=== PATIENT | female | born 1975 | race Caucasian/White ===

== ENCOUNTER 2019-10-09 16:42 | Inpatient (IN) ==
[2019-10-09 17:31] LABS: Basophils # 0.1 K/mcL (0.0-0.2); Basophils % 1.2 %; Eosinophils # 0.8 K/mcL (0.0-0.6); Eosinophils % 9.3 %; Hematocrit 44.3 % (35.3-44.9); Hemoglobin 14.2 g/dL (11.5-15.4); Immature Granulocytes % 0.7 % (0-4); Lymphocytes # 2.8 K/mcL (0.6-4.6); Lymphocytes % 33.8 %; Mean Corpuscular HGB Conc 32.1 g/dL (31.6-35.5); Mean Corpuscular Hemoglobin 31.1 pg (28.0-33.3); Mean Corpuscular Volume 97.1 fL (83.0-100.0); Mean Platelet Volume 9.7 fL (9.4-12.4); Monocytes # 0.8 K/mcL (0.0-1.3); Monocytes % 9.3 %; Neutrophils # 3.8 K/mcL (1.6-8.9); Platelet Count 324 K/mcL (140-400); Red Blood Count 4.56 M/mcL (3.82-4.97); Red Cell Distribution Width 12.3 % (11.5-14.5); Segmented Neutrophils % 45.7 %; White Blood Count 8.3 K/mcL (4.3-11.1)
[2019-10-09 17:36] LABS: VBG HCO3 24 mEq/L (21-27); VBG PCO2 42 mmHg (41-51); VBG PH 7.35 pH Units (7.32-7.42); VBG PO2 41 mmHg (25-50)
[2019-10-09 17:44] LABS: Prothrombin Time 11.4 Seconds (9.4-12.1)
[2019-10-09 17:47] LABS: Activated Partial Thrombo Time 39.7 Seconds (26.0-36.0)
[2019-10-09 18:15] LABS: Alanine Aminotransferase 67 Units/L (7-52); Albumin/Globulin Ratio 1.2 (1.1-2.2); Alkaline Phosphatase 593 Units/L (34-104); Aspartate Amino Transferase 68 Units/L (13-39); BUN/Creatinine Ratio 16 (6-26); Bilirubin,Direct 0.2 mg/dL (0.0-0.2); Bilirubin,Indirect 0.3 mg/dL (0.0-1.0); Bilirubin,Total 0.5 mg/dL (0.3-1.0); Blood Urea Nitrogen 27 mg/dL (6-20); Calcium 10.9 mg/dL (8.6-10.3); Carbon Dioxide 24 mEq/L (23-29); Chloride 105 mEq/L (98-107); Creatine Kinase 669 Units/L (30-223); Ethanol < 10 mg/dL (Less than 10); Globulin 3.4 g/dL (2.4-3.5); Glucose 113 mg/dL (70-105); Osmolality,Calculated 296 (280-300); Potassium 3.6 mEq/L (3.5-5.1); Sodium 140 mEq/L (136-145); Thyroid Stimulating Hormone 1.886 mcIU/mL (0.340-5.600); Total Protein 7.4 g/dL (6.4-8.9); Troponin I 0.03 ng/mL (< 0.04); eGFR For African Americans 39 (> 60); eGFR For Non-African Americans 32 (> 60)
[2019-10-09 19:35] LABS: Bilirubin,Urine Negative (Negative); Blood,Urine Negative (Negative); Clarity,Urine Clear (Clear); Color,Urine Yellow (Yellow); Glucose,Urine (UA) Normal (Normal); Ketones,Urine Negative (Negative); Leukocyte Esterase,Urine Negative (Negative); Nitrite,Urine Negative (Negative); Protein,Urine Trace mg/dL (Neg-Trace); Specific Gravity,Urine 1.019 (1.010-1.025); Urobilinogen,Urine Normal (Normal)
[2019-10-09] MEDS ORDERED: 0.9 % Sodium Chloride 1,000 ML IVC ONE (19:48)
[2019-10-09 19:51] LABS: Amphetamine Screen,Urine Positive ng/mL (Cutoff=1000); Barbiturate Screen,Urine Positive ng/mL (Cutoff=200); Benzodiazepines Screen,Urine Negative ng/mL (Cutoff=200); Cannabinoid Screen,Urine Negative ng/mL (Cutoff = 50); Cocaine Screen,Urine Negative ng/mL (Cutoff= 300); Opiate Screen,Urine Negative ng/mL (Cutoff=300); Phencyclidine Screen,Urine Negative ng/mL (Cutoff=25)
[2019-10-09] MEDS ORDERED: Naloxone 0.4 MG/ML INJ IVP PRN (22:30)
[2019-10-10] MEDS ORDERED: Acetaminophen/Butalbital/CaffeineTABLET PO PRN (00:08)
[2019-10-10] MEDS ORDERED: (Rizatriptan Benzoate [Maxalt] 10 MG) PO PRN (00:08)
[2019-10-10] MEDS ORDERED: 0.9 % Sodium Chloride 1,000 ML IVC SCH (00:15)
[2019-10-10 02:43] LABS: BUN/Creatinine Ratio 21 (6-26); Blood Urea Nitrogen 24 mg/dL (6-20); Calcium 9.6 mg/dL (8.6-10.3); Carbon Dioxide 20 mEq/L (23-29); Chloride 112 mEq/L (98-107); Glucose 92 mg/dL (70-105); Osmolality,Calculated 298 (280-300); Potassium 4.9 mEq/L (3.5-5.1); Sodium 142 mEq/L (136-145); eGFR For African Americans > 60 (> 60); eGFR For Non-African Americans 53 (> 60)
[2019-10-10 05:48] LABS: Basophils # 0.1 K/mcL (0.0-0.2); Basophils % 1.1 %; Eosinophils # 0.8 K/mcL (0.0-0.6); Eosinophils % 9.8 %; Hematocrit 38.1 % (35.3-44.9); Hemoglobin 12.6 g/dL (11.5-15.4); Immature Granulocytes % 0.6 % (0-4); Mean Corpuscular HGB Conc 33.1 g/dL (31.6-35.5); Mean Corpuscular Hemoglobin 31.8 pg (28.0-33.3); Mean Corpuscular Volume 96.2 fL (83.0-100.0); Monocytes # 0.8 K/mcL (0.0-1.3); Monocytes % 9.7 %; Neutrophils # 3.6 K/mcL (1.6-8.9); Platelet Count 264 K/mcL (140-400); Red Blood Count 3.96 M/mcL (3.82-4.97); Red Cell Distribution Width 12.3 % (11.5-14.5); Segmented Neutrophils % 42.8 %; White Blood Count 8.4 K/mcL (4.3-11.1)
[2019-10-10] MEDS: *HR* Heparin 5,000 UNIT/ML VIAL SQ SCH ×3 (05:54→22:10)
[2019-10-10] MEDS: Ringers Solution, Lactated 1,000 ML IVC SCH (11:58)
[2019-10-10 12:19] LABS: Red Blood Cell,CSF < 2000 RBC/mcL
[2019-10-10 12:22] LABS: Appearance,CSF Clear (Clear)
[2019-10-10 12:36] LABS: Glucose,CSF 49 mg/dL (40-70); Total Protein,CSF 107 mg/dL (15-45)
[2019-10-10 13:13] LABS: Basophils,CSF 0 %; Eosinophils,CSF 0 %; Other Cells,CSF 0 %
[2019-10-10] MEDS: PARoxetine 20 MG TABLET PO SCH (13:55)
[2019-10-10 14:03] LABS: Albumin 3.3 g/dL (3.5-5.7); Albumin/Globulin Ratio 1.2 (1.1-2.2); Bilirubin,Direct 0.1 mg/dL (0.0-0.2); Bilirubin,Indirect 0.3 mg/dL (0.0-1.0); Bilirubin,Total 0.4 mg/dL (0.3-1.0); Globulin 2.7 g/dL (2.4-3.5)
[2019-10-10] MEDS ORDERED: Acetaminophen 325 MG TABLET PO PRN (17:26)
[2019-10-10] MEDS: Nicotine 7 MG PATCH.TD24 TD SCH (17:43)
[2019-10-10] MEDS: Topiramate 25 MG TABLET PO SCH (22:10)
[2019-10-11] MEDS: Ringers Solution, Lactated 1,000 ML IVC SCH ×2 (00:56→13:24)
[2019-10-11] MEDS: Fluconazole 100 MG TABLET PO SCH ×2 (00:57→07:34)
[2019-10-11 02:58] LABS: Basophils # 0.1 K/mcL (0.0-0.2); Basophils % 0.8 %; Eosinophils # 0.6 K/mcL (0.0-0.6); Eosinophils % 8.3 %; Hematocrit 34.9 % (35.3-44.9); Hemoglobin 11.1 g/dL (11.5-15.4); Immature Granulocytes % 0.5 % (0-4); Lymphocytes % 41.2 %; Mean Corpuscular HGB Conc 31.8 g/dL (31.6-35.5); Mean Corpuscular Hemoglobin 30.9 pg (28.0-33.3); Mean Corpuscular Volume 97.2 fL (83.0-100.0); Mean Platelet Volume 10.4 fL (9.4-12.4); Monocytes # 0.8 K/mcL (0.0-1.3); Monocytes % 11.1 %; Neutrophils # 2.8 K/mcL (1.6-8.9); Platelet Count 239 K/mcL (140-400); Red Blood Count 3.59 M/mcL (3.82-4.97); Red Cell Distribution Width 12.2 % (11.5-14.5); Segmented Neutrophils % 38.1 %; White Blood Count 7.3 K/mcL (4.3-11.1)
[2019-10-11 03:23] LABS: BUN/Creatinine Ratio 20 (6-26); Blood Urea Nitrogen 21 mg/dL (6-20); Calcium 9.5 mg/dL (8.6-10.3); Carbon Dioxide 21 mEq/L (23-29); Chloride 111 mEq/L (98-107); Glucose 62 mg/dL (70-105); Osmolality,Calculated 295 (280-300); Sodium 142 mEq/L (136-145); eGFR For African Americans > 60 (> 60); eGFR For Non-African Americans 56 (> 60)
[2019-10-11] MEDS: *HR* Heparin 5,000 UNIT/ML VIAL SQ SCH ×3 (05:40→22:29)
[2019-10-11] MEDS: Nicotine 7 MG PATCH.TD24 TD SCH (07:34)
[2019-10-11] MEDS: PARoxetine 20 MG TABLET PO SCH (07:34)
[2019-10-11 09:15] LABS: Alanine Aminotransferase 51 Units/L (7-52); Albumin 3.3 g/dL (3.5-5.7); Albumin/Globulin Ratio 1.3 (1.1-2.2); Alkaline Phosphatase 384 Units/L (34-104); Aspartate Amino Transferase 66 Units/L (13-39); Bilirubin,Direct 0.1 mg/dL (0.0-0.2); Bilirubin,Indirect 0.2 mg/dL (0.0-1.0); Bilirubin,Total 0.3 mg/dL (0.3-1.0); Globulin 2.5 g/dL (2.4-3.5); Total Protein 5.8 g/dL (6.4-8.9)
[2019-10-11] MEDS ORDERED: *HR* LORazepam 2 MG/ML VIAL IVP ONE ×2 (12:27→17:07)
[2019-10-11] MEDS: Topiramate 25 MG TABLET PO SCH (22:29)
[2019-10-12 02:07] LABS: Red Blood Count 3.47 M/mcL (3.82-4.97); White Blood Count 5.6 K/mcL (4.3-11.1)
[2019-10-12 02:08] LABS: Basophils # 0.1 K/mcL (0.0-0.2); Basophils % 0.9 %; Eosinophils # 0.5 K/mcL (0.0-0.6); Eosinophils % 8.4 %; Hematocrit 33.4 % (35.3-44.9); Hemoglobin 11.1 g/dL (11.5-15.4); Immature Granulocytes % 0.5 % (0-4); Mean Corpuscular HGB Conc 33.2 g/dL (31.6-35.5); Mean Corpuscular Volume 96.3 fL (83.0-100.0); Mean Platelet Volume 9.6 fL (9.4-12.4); Monocytes # 0.5 K/mcL (0.0-1.3); Monocytes % 9.1 %; Neutrophils # 2.5 K/mcL (1.6-8.9); Platelet Count 238 K/mcL (140-400); Red Cell Distribution Width 12.2 % (11.5-14.5); Segmented Neutrophils % 45.1 %
[2019-10-12 02:24] LABS: BUN/Creatinine Ratio 16 (6-26); Blood Urea Nitrogen 13 mg/dL (6-20); Calcium 8.9 mg/dL (8.6-10.3); Carbon Dioxide 24 mEq/L (23-29); Chloride 109 mEq/L (98-107); Glucose 64 mg/dL (70-105); Osmolality,Calculated 292 (280-300); Potassium 3.1 mEq/L (3.5-5.1); Sodium 142 mEq/L (136-145); eGFR For African Americans > 60 (> 60); eGFR For Non-African Americans > 60 (> 60)
[2019-10-12] MEDS: Ringers Solution, Lactated 1,000 ML IVC SCH (03:43)
[2019-10-12 04:01] LABS: Hepatitis B Surface Antigen Nonreactive (Nonreactive)
[2019-10-12 04:31] LABS: HIV-1&2 Antibody & p24 Ag Nonreactive (Nonreactive)
[2019-10-12 04:33] LABS: Hepatitis A Antibody IgM Nonreactive (Nonreactive); Hepatitis B Core IgM Nonreactive (Nonreactive)
[2019-10-12] MEDS: *HR* Heparin 5,000 UNIT/ML VIAL SQ SCH ×2 (06:11→14:41)
[2019-10-12 06:14] LABS: Hepatitis C Virus Antibody Reactive (Nonreactive)
[2019-10-12] MEDS: PARoxetine 20 MG TABLET PO SCH (08:11)
[2019-10-12] MEDS: Nicotine 7 MG PATCH.TD24 TD SCH (08:11)
[2019-10-12] MEDS: Fluconazole 100 MG TABLET PO SCH (08:11)
[2019-10-12] MEDS ORDERED: Isovue-370 500 ML BOTTLE IVP ONE (08:20)
[2019-10-12] MEDS ORDERED: Gadolinium Contrast Agent (WT Based) IV PRN (08:20)
[2019-10-12] MEDS ORDERED: *HR* LORazepam 2 MG/ML VIAL IVP ONE (08:52)
[2019-10-12 12:01] LABS: Thyroid Stimulating Hormone 1.107 mcIU/mL (0.340-5.600)
[2019-10-12 12:07] LABS: Prolactin 12.55 ng/mL (3.80-23.20)
[2019-10-12 12:28] LABS: Follicle Stimulating Hormone 5.37 mIU/mL
[2019-10-12 12:29] LABS: Luteinizing Hormone 8.9 mIU/mL
[2019-10-12 18:26] VITALS: BP 108/75
[2019-10-13] MEDS ORDERED: Nicotine 14 MG PATCH.TD24 TD SCH (10:30)
== END 2019-10-12 18:28 | disposition short-term general hospital (02) | DRG 50 ==
LOC: 2ANU 16:42 → EMEROOARM 16:42 → SUATTDRO 22:13 → 2ANU 22:31
PROVIDERS: ADMIT Internal Medicine; ATTEND Internal Medicine

== ENCOUNTER 2019-10-30 12:56 | Inpatient (IN) ==
[2019-10-30] MEDS ORDERED: *HR* LORazepam 1 MG TABLET PO ONE ×2 (13:59→20:02)
[2019-10-30 14:25] LABS: Amphetamine Screen,Urine Negative ng/mL (Cutoff=1000); Barbiturate Screen,Urine Positive ng/mL (Cutoff=200); Benzodiazepines Screen,Urine Negative ng/mL (Cutoff=200); Cannabinoid Screen,Urine Negative ng/mL (Cutoff = 50); Cocaine Screen,Urine Negative ng/mL (Cutoff= 300); Opiate Screen,Urine Positive ng/mL (Cutoff=300); Phencyclidine Screen,Urine Negative ng/mL (Cutoff=25)
[2019-10-30 14:52] LABS: Amorphous Sediment,Urine Moderate per hpf (None-Few); Bacteria,Urine Few per hpf (None-Few); Bilirubin,Urine Negative (Negative); Blood,Urine Moderate (Negative); Clarity,Urine Ex.Turbid (Clear); Color,Urine Yellow (Yellow); Glucose,Urine (UA) Normal (Normal); Ketones,Urine Negative (Negative); Leukocyte Esterase,Urine Small (Negative); Nitrite,Urine Negative (Negative); Protein,Urine 50 mg/dL (Neg-Trace); Specific Gravity,Urine 1.023 (1.010-1.025); Squamous Epithelial Cell,Urine Moderate per hpf (None-Few); Urobilinogen,Urine Normal (Normal); WBC,Urine 15-30 per hpf (0-3)
[2019-10-30 15:27] LABS: Acetaminophen < 10 mcg/mL (10-20); Alanine Aminotransferase 51 Units/L (7-52); Albumin 3.5 g/dL (3.5-5.7); Albumin/Globulin Ratio 1.3 (1.1-2.2); Alkaline Phosphatase 188 Units/L (34-104); Aspartate Amino Transferase 60 Units/L (13-39); BUN/Creatinine Ratio 13 (6-26); Bilirubin,Direct 0.1 mg/dL (0.0-0.2); Bilirubin,Indirect 0.4 mg/dL (0.0-1.0); Bilirubin,Total 0.5 mg/dL (0.3-1.0); Blood Urea Nitrogen 10 mg/dL (6-20); Calcium 8.6 mg/dL (8.6-10.3); Carbon Dioxide 17 mEq/L (23-29); Chloride 117 mEq/L (98-107); Chol/HDL Ratio 3.5 (0-4.9); Cholesterol 153 mg/dL (< 200); Ethanol < 10 mg/dL (Less than 10); Globulin 2.6 g/dL (2.4-3.5); Glucose 93 mg/dL (70-105); HDL Cholesterol 44 mg/dL (40-59); LDL Cholesterol,Calculated 89 mg/dL (< 100); Osmolality,Calculated 297 (280-300); Potassium 4.2 mEq/L (3.5-5.1); Salicylate < 2.5 mg/dL (15.0-30.0); Sodium 144 mEq/L (136-145); Total Protein 6.1 g/dL (6.4-8.9); Triglycerides 102 mg/dL (< 150); eGFR For African Americans > 60 (> 60); eGFR For Non-African Americans > 60 (> 60)
[2019-10-30 15:57] LABS: Basophils # 0.1 K/mcL (0.0-0.2); Basophils % 0.8 %; Eosinophils # 0.4 K/mcL (0.0-0.6); Eosinophils % 4.3 %; Hematocrit 43.6 % (35.3-44.9); Hemoglobin 13.6 g/dL (11.5-15.4); Immature Granulocytes % 0.4 % (0-4); Lymphocytes # 4.2 K/mcL (0.6-4.6); Lymphocytes % 50.7 %; Mean Corpuscular HGB Conc 31.2 g/dL (31.6-35.5); Mean Corpuscular Hemoglobin 30.8 pg (28.0-33.3); Mean Corpuscular Volume 98.9 fL (83.0-100.0); Mean Platelet Volume 9.8 fL (9.4-12.4); Monocytes # 0.7 K/mcL (0.0-1.3); Monocytes % 8.9 %; Neutrophils # 2.9 K/mcL (1.6-8.9); Platelet Count 315 K/mcL (140-400); Red Blood Count 4.41 M/mcL (3.82-4.97); Segmented Neutrophils % 34.9 %; White Blood Count 8.3 K/mcL (4.3-11.1)
[2019-10-30 15:59] LABS: Thyroid Stimulating Hormone 0.708 mcIU/mL (0.340-5.600)
[2019-10-30 16:35] LABS: Estimated Average Glucose 117 mg/dl; Hemoglobin A1C 5.7 %
[2019-10-31] MEDS ORDERED: cefTRIAXone 250 MG VIAL IM ONE (09:55)
[2019-10-31] MEDS ORDERED: Azithromycin 250 MG TABLET PO ONE (09:56)
[2019-10-31] MEDS ORDERED: metroNIDAZOLE 500 MG TABLET PO ONE (09:57)
[2019-10-31] MEDS ORDERED: Lidocaine -MPF 1% 2 ML VIAL ONE (10:06)
[2019-10-31] MEDS ORDERED: MOM Conc 10 ML UD.LIQ PO PRN (10:18)
[2019-10-31] MEDS ORDERED: Mag Hydrox/Al Hydrox/Simeth 30 ML UDC PO PRN (10:18)
[2019-10-31] MEDS ORDERED: haloperidoL 5 MG TABLET PO PRN (10:18)
[2019-10-31] MEDS ORDERED: *HR* LORazepam 1 MG TABLET PO PRN (10:18)
[2019-10-31] MEDS ORDERED: Haloperidol Lactate 5 MG/ML VIAL IM PRN (10:18)
[2019-10-31] MEDS ORDERED: *HR* LORazepam 2 MG/ML VIAL IM PRN (10:18)
[2019-10-31] MEDS ORDERED: Fluconazole 100 MG TABLET PO SCH (14:45)
[2019-10-31] MEDS: Ibuprofen 800 MG TABLET PO SCH (15:38)
[2019-10-31] MEDS: Gabapentin 400 MG CAPSULE PO SCH ×2 (15:38→20:42)
[2019-10-31] MEDS: Fluconazole 100 MG TABLET PO SCH (15:59)
[2019-10-31] MEDS: Topiramate 100 MG TABLET PO SCH (20:42)
[2019-10-31] MEDS ORDERED: TOPIRAMATE 100 MG PO SCH (21:00)
[2019-11-01] MEDS: Ibuprofen 800 MG TABLET PO SCH ×3 (00:12→15:31)
[2019-11-01] MEDS: Acetaminophen 325 MG TABLET PO PRN (02:52)
[2019-11-01] MEDS: hydrOXYzine pamoate 25 MG CAPSULE PO PRN (05:55)
[2019-11-01 07:31] LABS: Basophils % 0.9 %; Eosinophils # 0.4 K/mcL (0.0-0.6); Eosinophils % 7.8 %; Hematocrit 37.1 % (35.3-44.9); Immature Granulocytes % 0.4 % (0-4); Lymphocytes % 43.4 %; Mean Corpuscular HGB Conc 31.8 g/dL (31.6-35.5); Mean Corpuscular Hemoglobin 30.9 pg (28.0-33.3); Mean Corpuscular Volume 97.1 fL (83.0-100.0); Mean Platelet Volume 10.2 fL (9.4-12.4); Monocytes # 0.4 K/mcL (0.0-1.3); Monocytes % 8.5 %; Neutrophils # 1.8 K/mcL (1.6-8.9); Platelet Count 262 K/mcL (140-400); Red Blood Count 3.82 M/mcL (3.82-4.97); Red Cell Distribution Width 13.4 % (11.5-14.5); White Blood Count 4.6 K/mcL (4.3-11.1)
[2019-11-01 07:32] LABS: Hemoglobin 11.8 g/dL (11.5-15.4)
[2019-11-01 07:49] LABS: Alanine Aminotransferase 58 Units/L (7-52); Albumin 3.4 g/dL (3.5-5.7); Albumin/Globulin Ratio 1.5 (1.1-2.2); Alkaline Phosphatase 184 Units/L (34-104); Aspartate Amino Transferase 81 Units/L (13-39); BUN/Creatinine Ratio 16 (6-26); Bilirubin,Total 0.4 mg/dL (0.3-1.0); Blood Urea Nitrogen 12 mg/dL (6-20); Calcium 8.1 mg/dL (8.6-10.3); Carbon Dioxide 17 mEq/L (23-29); Chloride 116 mEq/L (98-107); Globulin 2.3 g/dL (2.4-3.5); Glucose 133 mg/dL (70-105); Magnesium 1.9 mg/dL (1.6-2.6); Osmolality,Calculated 294 (280-300); Phosphorous 3.5 mg/dL (2.7-4.5); Potassium 3.5 mEq/L (3.5-5.1); Sodium 141 mEq/L (136-145); Total Protein 5.7 g/dL (6.4-8.9); eGFR For African Americans > 60 (> 60); eGFR For Non-African Americans > 60 (> 60)
[2019-11-01] MEDS: Nicotine 14 MG PATCH.TD24 TD SCH (08:50)
[2019-11-01] MEDS: Gabapentin 400 MG CAPSULE PO SCH ×3 (08:50→21:00)
[2019-11-01] MEDS: Fluconazole 100 MG TABLET PO SCH (08:50)
[2019-11-01] MEDS: traZODone 50 MG TABLET PO PRN (21:00)
[2019-11-01] MEDS: Topiramate 100 MG TABLET PO SCH (21:00)
[2019-11-02] MEDS: Ibuprofen 800 MG TABLET PO SCH ×3 (01:32→16:00)
[2019-11-02] MEDS: Nicotine 14 MG PATCH.TD24 TD SCH (08:59)
[2019-11-02] MEDS: Fluconazole 100 MG TABLET PO SCH (09:00)
[2019-11-02] MEDS: Gabapentin 400 MG CAPSULE PO SCH ×3 (09:00→20:13)
[2019-11-02] MEDS ORDERED: SUMAtriptan succinate 50 MG TABLET PO PRN (09:26)
[2019-11-02 09:51] LABS: Hematocrit 43.7 % (35.3-44.9); Mean Corpuscular HGB Conc 31.4 g/dL (31.6-35.5); Mean Corpuscular Hemoglobin 30.9 pg (28.0-33.3); Mean Corpuscular Volume 98.4 fL (83.0-100.0); Mean Platelet Volume 10.1 fL (9.4-12.4); Platelet Count 314 K/mcL (140-400); Red Blood Count 4.44 M/mcL (3.82-4.97); Red Cell Distribution Width 13.7 % (11.5-14.5)
[2019-11-02 10:04] LABS: Hemoglobin 13.7 g/dL (11.5-15.4); White Blood Count 7.5 K/mcL (4.3-11.1)
[2019-11-02 10:12] LABS: Alanine Aminotransferase 56 Units/L (7-52); Albumin 3.9 g/dL (3.5-5.7); Albumin/Globulin Ratio 1.5 (1.1-2.2); Alkaline Phosphatase 195 Units/L (34-104); Aspartate Amino Transferase 60 Units/L (13-39); BUN/Creatinine Ratio 19 (6-26); Bilirubin,Total 0.3 mg/dL (0.3-1.0); Blood Urea Nitrogen 15 mg/dL (6-20); Calcium 8.4 mg/dL (8.6-10.3); Carbon Dioxide 18 mEq/L (23-29); Chloride 117 mEq/L (98-107); Globulin 2.6 g/dL (2.4-3.5); Glucose 105 mg/dL (70-105); Osmolality,Calculated 297 (280-300); Potassium 3.4 mEq/L (3.5-5.1); Sodium 143 mEq/L (136-145); Total Protein 6.5 g/dL (6.4-8.9); eGFR For African Americans > 60 (> 60); eGFR For Non-African Americans > 60 (> 60)
[2019-11-02] MEDS: hydrOXYzine pamoate 25 MG CAPSULE PO PRN ×2 (12:24→20:12)
[2019-11-02] MEDS: Acetaminophen 325 MG TABLET PO PRN (18:04)
[2019-11-02] MEDS: Topiramate 100 MG TABLET PO SCH (20:12)
[2019-11-02] MEDS: traZODone 50 MG TABLET PO PRN (20:13)
[2019-11-03] MEDS: Ibuprofen 800 MG TABLET PO SCH ×3 (04:20→15:32)
[2019-11-03] MEDS: Acetaminophen 325 MG TABLET PO PRN (05:29)
[2019-11-03] MEDS: Fluconazole 100 MG TABLET PO SCH (09:16)
[2019-11-03] MEDS: Gabapentin 400 MG CAPSULE PO SCH ×3 (09:16→20:13)
[2019-11-03] MEDS: Nicotine 14 MG PATCH.TD24 TD SCH (09:18)
[2019-11-03] MEDS: Topiramate 100 MG TABLET PO SCH (20:13)
[2019-11-03] MEDS: hydrOXYzine pamoate 25 MG CAPSULE PO PRN (20:13)
[2019-11-03] MEDS: traZODone 50 MG TABLET PO PRN (20:13)
[2019-11-03] MEDS: QUEtiapine Fumarate 25 MG TABLET PO SCH (20:14)
[2019-11-04] MEDS: Ibuprofen 800 MG TABLET PO SCH ×4 (01:39→23:13)
[2019-11-04] MEDS: Acetaminophen 325 MG TABLET PO PRN ×2 (01:40→20:30)
[2019-11-04] MEDS: Nicotine 14 MG PATCH.TD24 TD SCH (08:47)
[2019-11-04] MEDS: Gabapentin 400 MG CAPSULE PO SCH ×3 (08:48→20:30)
[2019-11-04] MEDS: Fluconazole 100 MG TABLET PO SCH (08:48)
[2019-11-04] MEDS: Acetaminophen/Butalbital/CaffeineTABLET PO PRN (13:18)
[2019-11-04] MEDS: *HR* OxyCODONE/APAP 5/325 TABLET PO PRN ×2 (17:09→23:13)
[2019-11-04] MEDS: QUEtiapine Fumarate 25 MG TABLET PO SCH (20:30)
[2019-11-04] MEDS: hydrOXYzine pamoate 25 MG CAPSULE PO PRN (20:30)
[2019-11-04] MEDS: traZODone 50 MG TABLET PO PRN (20:30)
[2019-11-04] MEDS: Topiramate 100 MG TABLET PO SCH (20:30)
[2019-11-05] MEDS: *HR* OxyCODONE/APAP 5/325 TABLET PO PRN ×3 (05:41→16:14)
[2019-11-05 07:25] LABS: Basophils # 0.1 K/mcL (0.0-0.2); Eosinophils # 0.3 K/mcL (0.0-0.6); Eosinophils % 4.4 %; Hematocrit 39.2 % (35.3-44.9); Hemoglobin 12.5 g/dL (11.5-15.4); Immature Granulocytes % 0.4 % (0-4); Lymphocytes % 54.9 %; Mean Corpuscular HGB Conc 31.9 g/dL (31.6-35.5); Mean Corpuscular Hemoglobin 32.1 pg (28.0-33.3); Mean Corpuscular Volume 100.5 fL (83.0-100.0); Mean Platelet Volume 9.9 fL (9.4-12.4); Monocytes # 0.5 K/mcL (0.0-1.3); Monocytes % 7.5 %; Neutrophils # 2.3 K/mcL (1.6-8.9); Platelet Count 269 K/mcL (140-400); Red Cell Distribution Width 13.9 % (11.5-14.5); Segmented Neutrophils % 31.8 %; White Blood Count 7.2 K/mcL (4.3-11.1)
[2019-11-05 07:46] LABS: Alanine Aminotransferase 43 Units/L (7-52); Albumin/Globulin Ratio 1.5 (1.1-2.2); Alkaline Phosphatase 151 Units/L (34-104); Aspartate Amino Transferase 38 Units/L (13-39); BUN/Creatinine Ratio 16 (6-26); Bilirubin,Total 0.2 mg/dL (0.3-1.0); Blood Urea Nitrogen 13 mg/dL (6-20); Calcium 8.3 mg/dL (8.6-10.3); Carbon Dioxide 21 mEq/L (23-29); Chloride 113 mEq/L (98-107); Globulin 2.6 g/dL (2.4-3.5); Glucose 97 mg/dL (70-105); Osmolality,Calculated 292 (280-300); Potassium 3.5 mEq/L (3.5-5.1); Sodium 141 mEq/L (136-145); Total Protein 6.6 g/dL (6.4-8.9); eGFR For African Americans > 60 (> 60); eGFR For Non-African Americans > 60 (> 60)
[2019-11-05] MEDS: Ibuprofen 800 MG TABLET PO SCH ×2 (08:41→16:14)
[2019-11-05] MEDS: Fluconazole 100 MG TABLET PO SCH (08:42)
[2019-11-05] MEDS: Gabapentin 400 MG CAPSULE PO SCH ×2 (08:43→15:05)
[2019-11-05] MEDS: Nicotine 14 MG PATCH.TD24 TD SCH (08:44)
[2019-11-05 09:16] VITALS: BP 111/73
[2019-11-05] MEDS: Acetaminophen/Butalbital/CaffeineTABLET PO PRN (15:07)
[2019-11-07 16:19] LABS: SARS-CoV-2 by NAA Not Detected (Not Detect)
== END 2019-11-05 18:45 | disposition home or self-care (01) | DRG 757 ==
LOC: EMEROOARM 12:56 → 1ANU 10-31 10:12
PROVIDERS: ADMIT Psychiatry & Neurology Psychiatry; ATTEND Psychiatry & Neurology Psychiatry

== ENCOUNTER 2020-10-08 11:50 | Inpatient (IN) ==
[2020-10-08 13:23] LABS: Basophils # 0.1 K/mcL (0.0-0.2); Basophils % 0.7 %; Eosinophils # 0.5 K/mcL (0.0-0.6); Eosinophils % 5.1 %; Hematocrit 43.7 % (35.3-44.9); Hemoglobin 13.9 g/dL (11.5-15.4); Immature Granulocytes % 0.7 % (0-4); Lymphocytes # 3.2 K/mcL (0.6-4.6); Lymphocytes % 30.8 %; Mean Corpuscular HGB Conc 31.8 g/dL (31.6-35.5); Mean Corpuscular Hemoglobin 29.4 pg (28.0-33.3); Mean Corpuscular Volume 92.6 fL (83.0-100.0); Monocytes # 0.7 K/mcL (0.0-1.3); Neutrophils # 5.9 K/mcL (1.6-8.9); Platelet Count 320 K/mcL (140-400); Red Blood Count 4.72 M/mcL (3.82-4.97); Red Cell Distribution Width 13.4 % (11.5-14.5); Segmented Neutrophils % 55.7 %; White Blood Count 10.5 K/mcL (4.3-11.1)
[2020-10-08 13:44] LABS: Estimated Average Glucose 120 mg/dl; Hemoglobin A1C 5.8 %
[2020-10-08 13:47] LABS: Acetaminophen < 10 mcg/mL (10-20); BUN/Creatinine Ratio 18 (6-26); Blood Urea Nitrogen 13 mg/dL (6-20); Calcium 9.3 mg/dL (8.6-10.3); Carbon Dioxide 22 mEq/L (23-29); Chloride 109 mEq/L (98-107); Chol/HDL Ratio 2.2 (0-4.9); Cholesterol 155 mg/dL (< 200); Ethanol < 10 mg/dL (Less than 10); Glucose 87 mg/dL (70-105); HDL Cholesterol 69 mg/dL (40-59); LDL Cholesterol,Calculated 75 mg/dL (< 100); Osmolality,Calculated 289 (280-300); Salicylate < 2.5 mg/dL (15.0-30.0); Sodium 140 mEq/L (136-145); Triglycerides 53 mg/dL (< 150); eGFR For African Americans > 60 (> 60); eGFR For Non-African Americans > 60 (> 60)
[2020-10-08 14:05] LABS: Bilirubin,Urine Negative (Negative); Blood,Urine Negative (Negative); Clarity,Urine Clear (Clear); Color,Urine Colorless (Yellow); Glucose,Urine (UA) Normal (Normal); Ketones,Urine Negative (Negative); Leukocyte Esterase,Urine Negative (Negative); Nitrite,Urine Negative (Negative); PH,Urine 6.5 pH Units (5.0-8.0); Protein,Urine Negative (Neg-Trace); Specific Gravity,Urine 1.008 (1.010-1.025); Urobilinogen,Urine Normal (Normal)
[2020-10-08 15:00] LABS: Amphetamine Screen,Urine Positive ng/mL (Cutoff=1000); Barbiturate Screen,Urine Negative ng/mL (Cutoff=200); Benzodiazepines Screen,Urine Negative ng/mL (Cutoff=200); Cannabinoid Screen,Urine Negative ng/mL (Cutoff = 50); Cocaine Screen,Urine Negative ng/mL (Cutoff= 300); Opiate Screen,Urine Negative ng/mL (Cutoff=300); Phencyclidine Screen,Urine Negative ng/mL (Cutoff=25)
[2020-10-08 18:29] LABS: Influenza A PCR Negative (Negative); Influenza B PCR Negative (Negative); Resp. Syncytial Virus PCR Negative (Negative)
[2020-10-08 18:52] LABS: SARS-CoV-2 by PCR (In House) Negative (Negative)
[2020-10-09] MEDS ORDERED: Nicotine 2 MG GUM BC PRN (14:53)
[2020-10-09] MEDS ORDERED: *HR* LORazepam 1 MG TABLET PO PRN (14:53)
[2020-10-09] MEDS ORDERED: haloperidoL 5 MG TABLET PO PRN (14:53)
[2020-10-09] MEDS ORDERED: Mag Hydrox/Al Hydrox/Simeth 30 ML UDC PO PRN (14:53)
[2020-10-09] MEDS ORDERED: Haloperidol Lactate 5 MG/ML VIAL IM PRN (14:53)
[2020-10-09] MEDS ORDERED: traZODone 50 MG TABLET PO PRN (14:53)
[2020-10-09] MEDS ORDERED: *HR* LORazepam 2 MG/ML VIAL IM PRN (14:53)
[2020-10-09] MEDS ORDERED: MOM Conc 10 ML UD.LIQ PO PRN (14:53)
[2020-10-09] MEDS: Gabapentin 400 MG CAPSULE PO PRN (19:01)
[2020-10-09] MEDS: Ibuprofen 800 MG TABLET PO PRN (21:10)
[2020-10-10] MEDS: Nicotine 21 MG PATCH.TD24 TD SCH (08:58)
[2020-10-10] MEDS: Ibuprofen 800 MG TABLET PO PRN ×2 (08:59→15:07)
[2020-10-10] MEDS: Gabapentin 400 MG CAPSULE PO PRN (08:59)
[2020-10-10] MEDS: Gabapentin 400 MG CAPSULE PO SCH ×2 (15:05→21:28)
[2020-10-10] MEDS: Baclofen 10 MG TABLET PO SCH ×2 (18:18→21:32)
[2020-10-10] MEDS: ARIPiprazole 5 MG TABLET PO SCH (21:28)
[2020-10-10] MEDS: lamoTRIgine 25 MG TABLET PO SCH (21:28)
[2020-10-11] MEDS: Ibuprofen 800 MG TABLET PO PRN (07:51)
[2020-10-11] MEDS: Nicotine 21 MG PATCH.TD24 TD SCH (08:35)
[2020-10-11] MEDS: Baclofen 10 MG TABLET PO SCH ×3 (08:36→20:38)
[2020-10-11] MEDS: Gabapentin 400 MG CAPSULE PO SCH ×3 (08:36→20:37)
[2020-10-11] MEDS: ARIPiprazole 5 MG TABLET PO SCH (20:38)
[2020-10-11] MEDS: lamoTRIgine 25 MG TABLET PO SCH (20:38)
[2020-10-12] MEDS: Ibuprofen 800 MG TABLET PO PRN ×3 (00:15→20:47)
[2020-10-12] MEDS: hydrOXYzine pamoate 25 MG CAPSULE PO PRN (00:16)
[2020-10-12] MEDS: Baclofen 10 MG TABLET PO SCH ×3 (08:37→20:46)
[2020-10-12] MEDS: Gabapentin 400 MG CAPSULE PO SCH (08:39)
[2020-10-12] MEDS: Nicotine 21 MG PATCH.TD24 TD SCH (08:40)
[2020-10-12] MEDS: Gabapentin 300 MG CAPSULE PO SCH ×2 (15:07→20:46)
[2020-10-12] MEDS: ARIPiprazole 5 MG TABLET PO SCH (20:46)
[2020-10-12] MEDS: lamoTRIgine 25 MG TABLET PO SCH (20:46)
[2020-10-13] MEDS: Nicotine 21 MG PATCH.TD24 TD SCH (08:20)
[2020-10-13] MEDS: Gabapentin 300 MG CAPSULE PO SCH ×3 (08:21→20:36)
[2020-10-13] MEDS: lamoTRIgine 25 MG TABLET PO SCH ×2 (08:22→20:36)
[2020-10-13] MEDS: Baclofen 10 MG TABLET PO SCH ×3 (08:22→20:36)
[2020-10-13] MEDS: Ibuprofen 800 MG TABLET PO PRN (08:23)
[2020-10-13] MEDS: ARIPiprazole 5 MG TABLET PO SCH (20:36)
[2020-10-13] MEDS: hydrOXYzine pamoate 25 MG CAPSULE PO PRN (20:36)
[2020-10-14] MEDS: Nicotine 21 MG PATCH.TD24 TD SCH (08:38)
[2020-10-14] MEDS: Baclofen 10 MG TABLET PO SCH ×2 (08:39→14:21)
[2020-10-14] MEDS: Ibuprofen 800 MG TABLET PO PRN (08:39)
[2020-10-14] MEDS: Gabapentin 300 MG CAPSULE PO SCH ×2 (08:39→14:21)
[2020-10-14] MEDS: lamoTRIgine 25 MG TABLET PO SCH (08:39)
[2020-10-14 09:10] VITALS: BP 103/79
== END 2020-10-14 18:35 | disposition home or self-care (01) | DRG 750 ==
LOC: EMEROOARM 11:50 → 1ANU 10-09 13:34
PROVIDERS: ADMIT Psychiatry & Neurology Forensic Psychiatry; ATTEND Psychiatry & Neurology Forensic Psychiatry

== ENCOUNTER 2021-02-20 02:47 | Inpatient (IN) ==
[2021-02-20] MEDS ORDERED: Melatonin 3 MG TABLET PO PRN (05:51)
[2021-02-20] MEDS ORDERED: Naloxone 0.4 MG/ML INJ IVP PRN (05:51)
[2021-02-20] MEDS ORDERED: 0.9 % Sodium Chloride 1,000 ML IVC SCH (06:15)
[2021-02-20] MEDS ORDERED: haloperidoL 1 MG TABLET PO PRN (14:18)
[2021-02-20 15:22] LABS: Albumin 3.5 g/dL (3.5-5.7); Albumin/Globulin Ratio 1.2 (1.1-2.2); Bilirubin,Direct 0.1 mg/dL (0.0-0.2); Bilirubin,Indirect 0.5 mg/dL (0.0-1.0); Bilirubin,Total 0.6 mg/dL (0.3-1.0); Globulin 2.9 g/dL (2.4-3.5); Total Protein 6.4 g/dL (6.4-8.9)
[2021-02-20] MEDS: RisperiDONE-M 1 MG TAB.RAPDIS PO SCH ×2 (16:20→20:52)
[2021-02-20] MEDS: 0.9 % Sodium Chloride 1,000 ML IVC SCH (16:21)
[2021-02-20] MEDS: *HR* Heparin 5,000 UNIT/ML VIAL SQ SCH ×2 (16:25→20:52)
[2021-02-21] MEDS: 0.9 % Sodium Chloride 1,000 ML IVC SCH ×3 (03:02→16:45)
[2021-02-21] MEDS: RisperiDONE-M 1 MG TAB.RAPDIS PO SCH (07:42)
[2021-02-22 11:41] LABS: Albumin 3.2 g/dL (3.5-5.7); Albumin/Globulin Ratio 1.3 (1.1-2.2); Bilirubin,Direct 0.1 mg/dL (0.0-0.2); Bilirubin,Indirect 0.2 mg/dL (0.0-1.0); Bilirubin,Total 0.3 mg/dL (0.3-1.0); Globulin 2.5 g/dL (2.4-3.5); Total Protein 5.7 g/dL (6.4-8.9)
[2021-02-23 05:30] LABS: Hematocrit 37.6 % (35.3-44.9); Hemoglobin 12.5 g/dL (11.5-15.4); Mean Corpuscular HGB Conc 33.2 g/dL (31.6-35.5); Mean Corpuscular Hemoglobin 30.6 pg (28.0-33.3); Mean Corpuscular Volume 91.9 fL (83.0-100.0); Mean Platelet Volume 9.6 fL (9.4-12.4); Platelet Count 277 K/mcL (140-400); Red Blood Count 4.09 M/mcL (3.82-4.97); Red Cell Distribution Width 13.4 % (11.5-14.5)
[2021-02-23 05:50] LABS: BUN/Creatinine Ratio 20 (6-26); Blood Urea Nitrogen 13 mg/dL (6-20); Calcium 8.6 mg/dL (8.6-10.3); Carbon Dioxide 23 mEq/L (23-29); Chloride 108 mEq/L (98-107); Glucose 103 mg/dL (70-105); Osmolality,Calculated 284 (280-300); Potassium 3.7 mEq/L (3.5-5.1); Sodium 137 mEq/L (136-145); eGFR For African Americans > 60 (> 60); eGFR For Non-African Americans > 60 (> 60)
[2021-02-23] MEDS: polyethylene glycoL 3350 17 GM POWD.PACK PO SCH (09:27)
[2021-02-23] MEDS ORDERED: Haloperidol Lactate 5 MG/ML VIAL IM ONE (17:48)
[2021-02-23] MEDS: risperiDONE 1 MG TABLET PO SCH (19:50)
[2021-02-24] MEDS: polyethylene glycoL 3350 17 GM POWD.PACK PO SCH (07:45)
[2021-02-24 14:56] VITALS: BP 99/68; PULSE 89; TEMP 97.6; O2SAT 95
[2021-02-24] MEDS ORDERED: Acetaminophen 325 MG TABLET PO ONE (16:02)
[2021-02-24] MEDS: risperiDONE 1 MG TABLET PO SCH (19:22)
[2021-02-24 21:37] LABS: Influenza A PCR Negative (Negative); Influenza B PCR Negative (Negative); Resp. Syncytial Virus PCR Negative (Negative)
[2021-02-24 21:38] LABS: SARS-CoV-2 by PCR (In House) Negative (Negative)
== END 2021-02-24 22:30 | DRG 817 ==
LOC: 3BNU
PROVIDERS: ADMIT Internal Medicine; ATTEND Internal Medicine

== ENCOUNTER 2021-02-24 22:33 | Inpatient (IN) ==
[2021-02-24] MEDS ORDERED: haloperidoL 1 MG TABLET PO PRN (22:50)
[2021-02-24] MEDS ORDERED: Acetaminophen 325 MG TABLET PO PRN (22:55)
[2021-02-24] MEDS ORDERED: hydrOXYzine pamoate 25 MG CAPSULE PO PRN (22:56)
[2021-02-24] MEDS ORDERED: Mag Hydrox/Al Hydrox/Simeth 30 ML UDC PO PRN (23:02)
[2021-02-24] MEDS ORDERED: MOM Conc 10 ML UD.LIQ PO PRN (23:09)
[2021-02-24] MEDS ORDERED: Nicotine 2 MG GUM BC PRN (23:26)
[2021-02-25] MEDS: polyethylene glycoL 3350 17 GM POWD.PACK PO SCH (09:00)
[2021-02-25] MEDS: risperiDONE 1 MG TABLET PO SCH (20:12)
[2021-02-25] MEDS: Melatonin 3 MG TABLET PO PRN (20:15)
[2021-02-26] MEDS: polyethylene glycoL 3350 17 GM POWD.PACK PO SCH (08:34)
[2021-02-26] MEDS: Melatonin 3 MG TABLET PO PRN (20:02)
[2021-02-26] MEDS: risperiDONE 1 MG TABLET PO SCH (20:02)
[2021-02-26 20:20] VITALS: BP 127/86
[2021-02-27] MEDS: polyethylene glycoL 3350 17 GM POWD.PACK PO SCH (09:05)
[2021-02-27 09:23] VITALS: PULSE 102; TEMP 97.8; O2SAT 98
== END 2021-02-27 13:30 | disposition home or self-care (01) | DRG 753 ==
LOC: SUATTDRO 22:33 → 1ANU 22:33
PROVIDERS: ADMIT Psychiatry & Neurology Psychiatry; ATTEND Internal Medicine

== ENCOUNTER 2021-03-04 22:32 | Inpatient (IN) ==
[2021-03-05 03:39] LABS: Bacteria,Urine Few per hpf (None-Few); Bilirubin,Urine Negative (Negative); Blood,Urine Large (Negative); Clarity,Urine Turbid (Clear); Color,Urine Yellow (Yellow); Glucose,Urine (UA) Normal (Normal); Ketones,Urine Negative (Negative); Leukocyte Esterase,Urine Negative (Negative); Mucus,Urine Few per lpf (None-Few); Nitrite,Urine Negative (Negative); Protein,Urine 30 mg/dL (Neg-Trace); RBC,Urine 0-3 per hpf (0-3); Specific Gravity,Urine > 1.030 (1.010-1.025); Squamous Epithelial Cell,Urine Moderate per hpf (None-Few); Urobilinogen,Urine Normal (Normal)
[2021-03-05 03:50] LABS: Amphetamine Screen,Urine Positive ng/mL (Cutoff=1000); Barbiturate Screen,Urine Negative ng/mL (Cutoff=200); Benzodiazepines Screen,Urine Negative ng/mL (Cutoff=200); Cannabinoid Screen,Urine Negative ng/mL (Cutoff = 50); Cocaine Screen,Urine Negative ng/mL (Cutoff= 300); Opiate Screen,Urine Negative ng/mL (Cutoff=300); Phencyclidine Screen,Urine Negative ng/mL (Cutoff=25)
[2021-03-05 03:57] LABS: Acetaminophen < 10 mcg/mL (10-20); BUN/Creatinine Ratio 19 (6-26); Blood Urea Nitrogen 14 mg/dL (6-20); Calcium 9.8 mg/dL (8.6-10.3); Carbon Dioxide 25 mEq/L (23-29); Chloride 104 mEq/L (98-107); Ethanol < 10 mg/dL (Less than 10); Glucose 111 mg/dL (70-105); Osmolality,Calculated 287 (280-300); Potassium 3.7 mEq/L (3.5-5.1); Salicylate < 2.5 mg/dL (15.0-30.0); Sodium 138 mEq/L (136-145); eGFR For African Americans > 60 (> 60); eGFR For Non-African Americans > 60 (> 60)
[2021-03-05 04:37] LABS: Basophils # 0.1 K/mcL (0.0-0.2); Basophils % 0.8 %; Eosinophils # 0.2 K/mcL (0.0-0.6); Hematocrit 40.5 % (35.3-44.9); Hemoglobin 12.9 g/dL (11.5-15.4); Immature Granulocytes % 0.5 % (0-4); Lymphocytes # 3.2 K/mcL (0.6-4.6); Lymphocytes % 40.9 %; Mean Corpuscular HGB Conc 31.9 g/dL (31.6-35.5); Mean Corpuscular Hemoglobin 29.6 pg (28.0-33.3); Mean Corpuscular Volume 92.9 fL (83.0-100.0); Mean Platelet Volume 9.6 fL (9.4-12.4); Monocytes # 0.6 K/mcL (0.0-1.3); Monocytes % 7.4 %; Neutrophils # 3.8 K/mcL (1.6-8.9); Platelet Count 358 K/mcL (140-400); Red Blood Count 4.36 M/mcL (3.82-4.97); Red Cell Distribution Width 13.2 % (11.5-14.5); Segmented Neutrophils % 47.4 %; White Blood Count 7.9 K/mcL (4.3-11.1)
[2021-03-05 05:27] LABS: Creatine Kinase 117 Units/L (30-223)
[2021-03-05 06:01] LABS: Influenza A PCR Negative (Negative); Influenza B PCR Negative (Negative); Resp. Syncytial Virus PCR Negative (Negative)
[2021-03-05 06:05] LABS: SARS-CoV-2 by PCR (In House) Negative (Negative)
[2021-03-05] MEDS ORDERED: MOM Conc 10 ML UD.LIQ PO PRN (07:04)
[2021-03-05] MEDS ORDERED: hydrOXYzine pamoate 25 MG CAPSULE PO PRN (07:04)
[2021-03-05] MEDS ORDERED: Haloperidol Lactate 5 MG/ML VIAL IM PRN (07:04)
[2021-03-05] MEDS ORDERED: haloperidoL 5 MG TABLET PO PRN (07:04)
[2021-03-05] MEDS ORDERED: Ibuprofen 400 MG TABLET PO PRN (07:04)
[2021-03-05] MEDS ORDERED: Mag Hydrox/Al Hydrox/Simeth 30 ML UDC PO PRN (07:04)
[2021-03-05] MEDS ORDERED: *HR* LORazepam 1 MG TABLET PO PRN (07:04)
[2021-03-05] MEDS ORDERED: QUEtiapine Fumarate 25 MG TABLET PO PRN (07:04)
[2021-03-05] MEDS ORDERED: *HR* LORazepam 2 MG/ML VIAL IM PRN (07:04)
[2021-03-05] MEDS: risperiDONE 1 MG TABLET PO SCH ×2 (13:15→21:03)
[2021-03-05] MEDS ORDERED: Nicotine 2 MG GUM BC PRN (17:17)
[2021-03-06] MEDS: risperiDONE 1 MG TABLET PO SCH ×2 (08:54→21:41)
[2021-03-07] MEDS: risperiDONE 1 MG TABLET PO SCH ×2 (09:13→20:35)
[2021-03-08] MEDS: risperiDONE 1 MG TABLET PO SCH (09:30)
[2021-03-08] MEDS ORDERED: RisperiDAL 3 MG TABLET PO SCH (21:00)
[2021-03-09 09:40] VITALS: BP 92/74; PULSE 99; TEMP 97.7; O2SAT 97
[2021-03-09] MEDS: risperiDONE 1 MG TABLET PO SCH (10:32)
== END 2021-03-09 17:13 | disposition home or self-care (01) | DRG 753 ==
LOC: EMEROOARM 22:32 → 1ANU 03-05 06:49
PROVIDERS: ADMIT Psychiatry & Neurology Psychiatry; ATTEND Psychiatry & Neurology Psychiatry

== ENCOUNTER 2021-04-01 09:06 | Inpatient (IN) ==
[2021-04-01 10:03] LABS: Acetaminophen < 10 mcg/mL (10-20); Salicylate < 2.5 mg/dL (15.0-30.0)
[2021-04-01] MEDS ORDERED: Mag Hydrox/Al Hydrox/Simeth 30 ML UDC PO PRN (13:29)
[2021-04-01] MEDS ORDERED: QUEtiapine Fumarate 25 MG TABLET PO PRN (13:29)
[2021-04-01] MEDS ORDERED: MOM Conc 10 ML UD.LIQ PO PRN (13:29)
[2021-04-01] MEDS ORDERED: *HR* LORazepam 2 MG/ML VIAL IM PRN (13:29)
[2021-04-01] MEDS ORDERED: Haloperidol Lactate 5 MG/ML VIAL IM PRN (13:29)
[2021-04-01] MEDS ORDERED: *HR* LORazepam 1 MG TABLET PO PRN (13:29)
[2021-04-01] MEDS ORDERED: haloperidoL 5 MG TABLET PO PRN (13:29)
[2021-04-02] MEDS: hydrOXYzine pamoate 25 MG CAPSULE PO PRN ×2 (09:34→20:42)
[2021-04-02] MEDS: risperiDONE 1 MG TABLET PO SCH (20:42)
[2021-04-03] MEDS: Acetaminophen 325 MG TABLET PO PRN (20:29)
[2021-04-03] MEDS: risperiDONE 1 MG TABLET PO SCH (20:30)
[2021-04-03] MEDS: hydrOXYzine pamoate 25 MG CAPSULE PO PRN (20:30)
[2021-04-04] MEDS: RisperiDAL 3 MG TABLET PO SCH (20:40)
[2021-04-04] MEDS: Acetaminophen 325 MG TABLET PO PRN (20:41)
[2021-04-04] MEDS: hydrOXYzine pamoate 25 MG CAPSULE PO PRN (20:41)
[2021-04-05] MEDS: Acetaminophen 325 MG TABLET PO PRN ×2 (08:34→20:21)
[2021-04-05 09:01] VITALS: O2SAT 98
[2021-04-05] MEDS: hydrOXYzine pamoate 25 MG CAPSULE PO PRN ×2 (20:21→22:03)
[2021-04-05] MEDS: RisperiDAL 3 MG TABLET PO SCH (20:21)
[2021-04-06 09:00] VITALS: BP 95/72; PULSE 76; TEMP 98.7
== END 2021-04-06 17:20 | disposition home or self-care (01) | DRG 751 ==
LOC: EMEROOARM 09:06 → 1ANU 12:47
PROVIDERS: ADMIT Psychiatry & Neurology Psychiatry; ATTEND Psychiatry & Neurology Psychiatry

== ENCOUNTER 2021-06-18 18:29 | Inpatient (IN) ==
[2021-06-18 21:31] LABS: Influenza A PCR Negative (Negative); Influenza B PCR Negative (Negative); Resp. Syncytial Virus PCR Negative (Negative)
[2021-06-18 21:32] LABS: SARS-CoV-2 by PCR (In House) Negative (Negative)
[2021-06-18] MEDS ORDERED: *HR* LORazepam 2 MG/ML VIAL IM PRN (23:00)
[2021-06-18] MEDS ORDERED: Haloperidol Lactate 5 MG/ML VIAL IM PRN (23:00)
[2021-06-18] MEDS ORDERED: *HR* LORazepam 1 MG TABLET PO PRN (23:00)
[2021-06-18] MEDS ORDERED: Ibuprofen 400 MG TABLET PO PRN (23:00)
[2021-06-18] MEDS ORDERED: haloperidoL 5 MG TABLET PO PRN (23:00)
[2021-06-18] MEDS: Acetaminophen 325 MG TABLET PO PRN (23:50)
[2021-06-18] MEDS: QUEtiapine Fumarate 25 MG TABLET PO PRN (23:50)
[2021-06-18] MEDS: hydrOXYzine pamoate 25 MG CAPSULE PO PRN (23:50)
[2021-06-19] MEDS ORDERED: risperiDONE 1 MG TABLET PO SCH (09:00)
[2021-06-19] MEDS: Nicotine 14 MG PATCH.TD24 TD SCH (09:09)
[2021-06-19] MEDS: *HR* Buprenorphine HCl 8 MG TAB.SUBL SL SCH (09:09)
[2021-06-19] MEDS ORDERED: Mag Hydrox/Al Hydrox/Simeth 30 ML UDC PO PRN (13:24)
[2021-06-19] MEDS ORDERED: MOM Conc 10 ML UD.LIQ PO PRN (13:24)
[2021-06-19] MEDS: hydrOXYzine pamoate 25 MG CAPSULE PO PRN (21:06)
[2021-06-19] MEDS: QUEtiapine Fumarate 25 MG TABLET PO PRN (21:07)
[2021-06-20] MEDS: Nicotine 14 MG PATCH.TD24 TD SCH (08:06)
[2021-06-20] MEDS: *HR* Buprenorphine HCl 8 MG TAB.SUBL SL SCH (08:08)
[2021-06-21] MEDS: Nicotine 14 MG PATCH.TD24 TD SCH (08:06)
[2021-06-21] MEDS: *HR* Buprenorphine HCl 8 MG TAB.SUBL SL SCH (08:16)
[2021-06-21] MEDS: hydrOXYzine pamoate 25 MG CAPSULE PO PRN (16:21)
[2021-06-22] MEDS: *HR* Buprenorphine HCl 8 MG TAB.SUBL SL SCH (08:56)
[2021-06-22] MEDS: Nicotine 14 MG PATCH.TD24 TD SCH (08:56)
[2021-06-22] MEDS: hydrOXYzine pamoate 25 MG CAPSULE PO PRN (19:10)
[2021-06-22] MEDS: QUEtiapine Fumarate 25 MG TABLET PO PRN (20:51)
[2021-06-23] MEDS: *HR* Buprenorphine HCl 8 MG TAB.SUBL SL SCH (08:37)
[2021-06-23] MEDS: Nicotine 14 MG PATCH.TD24 TD SCH (08:37)
[2021-06-23] MEDS ORDERED: Paliperidone Palmitate 156 MG/ML SYRINGE IM SCH (09:00)
[2021-06-23] MEDS: QUEtiapine Fumarate 25 MG TABLET PO PRN (20:45)
[2021-06-23] MEDS: Acetaminophen 325 MG TABLET PO PRN (20:45)
[2021-06-24] MEDS: *HR* Buprenorphine HCl 8 MG TAB.SUBL SL SCH (08:16)
[2021-06-24] MEDS: Nicotine 14 MG PATCH.TD24 TD SCH (08:17)
[2021-06-24] MEDS: hydrOXYzine pamoate 25 MG CAPSULE PO PRN (20:02)
[2021-06-24] MEDS: Acetaminophen 325 MG TABLET PO PRN (20:02)
[2021-06-25] MEDS: Nicotine 14 MG PATCH.TD24 TD SCH (08:15)
[2021-06-25] MEDS: *HR* Buprenorphine HCl 8 MG TAB.SUBL SL SCH (08:16)
[2021-06-25 08:54] VITALS: BP 117/71; PULSE 75; TEMP 98.3; O2SAT 100
== END 2021-06-25 14:45 | disposition home or self-care (01) | DRG 751 ==
LOC: EMEROOARM 18:29 → SUATTDRO 23:14 → 1ANU 23:14
PROVIDERS: ADMIT Psychiatry & Neurology Psychiatry; ATTEND Psychiatry & Neurology Psychiatry

== ENCOUNTER 2021-08-05 11:56 | Inpatient (IN) ==
[2021-08-05 14:15] LABS: Influenza A PCR Negative (Negative); Influenza B PCR Negative (Negative); Resp. Syncytial Virus PCR Negative (Negative)
[2021-08-05 14:53] LABS: SARS-CoV-2 by PCR (In House) Negative (Negative)
[2021-08-05] MEDS ORDERED: Mag Hydrox/Al Hydrox/Simeth 30 ML UDC PO PRN (15:49)
[2021-08-05] MEDS ORDERED: Haloperidol Lactate 5 MG/ML VIAL IM PRN (15:49)
[2021-08-05] MEDS ORDERED: MOM Conc 10 ML UD.LIQ PO PRN (15:49)
[2021-08-05] MEDS ORDERED: *HR* LORazepam 1 MG TABLET PO PRN (15:49)
[2021-08-05] MEDS ORDERED: haloperidoL 5 MG TABLET PO PRN (15:49)
[2021-08-05] MEDS ORDERED: *HR* LORazepam 2 MG/ML VIAL IM PRN (15:49)
[2021-08-05] MEDS: Acetaminophen 325 MG TABLET PO PRN (20:53)
[2021-08-05] MEDS: hydrOXYzine pamoate 25 MG CAPSULE PO PRN (20:54)
[2021-08-05] MEDS: QUEtiapine Fumarate 25 MG TABLET PO PRN (20:54)
[2021-08-06] MEDS: Nicotine 14 MG PATCH.TD24 TD SCH (09:42)
[2021-08-06] MEDS ORDERED: Paliperidone Palmitate 234 MG/1.5 ML SYRINGE IM SCH (12:15)
[2021-08-06] MEDS: *HR* Buprenorphine HCl 8 MG TAB.SUBL SL SCH (14:03)
[2021-08-06] MEDS: QUEtiapine Fumarate 25 MG TABLET PO PRN (20:09)
[2021-08-06] MEDS: hydrOXYzine pamoate 25 MG CAPSULE PO PRN (20:09)
[2021-08-07] MEDS: Nicotine 14 MG PATCH.TD24 TD SCH (08:20)
[2021-08-07] MEDS: *HR* Buprenorphine HCl 8 MG TAB.SUBL SL SCH (08:22)
[2021-08-08] MEDS: Nicotine 14 MG PATCH.TD24 TD SCH (08:21)
[2021-08-08] MEDS: *HR* Buprenorphine HCl 8 MG TAB.SUBL SL SCH (08:22)
[2021-08-08] MEDS: Acetaminophen 325 MG TABLET PO PRN (17:42)
[2021-08-08] MEDS: hydrOXYzine pamoate 25 MG CAPSULE PO PRN (17:43)
[2021-08-09] MEDS: Nicotine 14 MG PATCH.TD24 TD SCH (08:19)
[2021-08-09] MEDS: *HR* Buprenorphine HCl 8 MG TAB.SUBL SL SCH (08:19)
[2021-08-10] MEDS: *HR* Buprenorphine HCl 8 MG TAB.SUBL SL SCH (08:28)
[2021-08-10] MEDS: Nicotine 14 MG PATCH.TD24 TD SCH (08:28)
[2021-08-10] MEDS ORDERED: Paliperidone Palmitate 156 MG/ML SYRINGE IM SCH (09:00)
[2021-08-10] MEDS: hydrOXYzine pamoate 25 MG CAPSULE PO PRN (16:54)
[2021-08-10 20:38] VITALS: O2SAT 97
[2021-08-11] MEDS: Nicotine 14 MG PATCH.TD24 TD SCH (08:25)
[2021-08-11] MEDS: *HR* Buprenorphine HCl 8 MG TAB.SUBL SL SCH (08:26)
[2021-08-11 09:12] VITALS: BP 138/81; PULSE 82; TEMP 98.2
[2021-08-11] MEDS ORDERED: Paliperidone Palmitate 156 MG/ML SYRINGE IM SCH (11:00)
== END 2021-08-11 13:23 | disposition home or self-care (01) | DRG 750 ==
LOC: EMEROOARM 11:56 → 1ANU 15:13
PROVIDERS: ADMIT Psychiatry & Neurology Psychiatry; ATTEND Psychiatry & Neurology Psychiatry

== ENCOUNTER 2021-12-09 01:20 | Inpatient (IN) ==
[2021-12-09 02:10] LABS: Bilirubin,Urine Negative (Negative); Blood,Urine Negative (Negative); Clarity,Urine Clear (Clear); Color,Urine Light-Yellow (Yellow); Glucose,Urine (UA) Normal (Normal); Ketones,Urine Negative (Negative); Leukocyte Esterase,Urine Negative (Negative); Nitrite,Urine Negative (Negative); PH,Urine 7.5 pH Units (5.0-8.0); Protein,Urine Negative (Neg-Trace)
[2021-12-09 02:25] LABS: Amphetamine Screen,Urine Positive ng/mL (Cutoff=1000); Barbiturate Screen,Urine Negative ng/mL (Cutoff=200); Benzodiazepines Screen,Urine Negative ng/mL (Cutoff=200); Cannabinoid Screen,Urine Negative ng/mL (Cutoff = 50); Cocaine Screen,Urine Negative ng/mL (Cutoff= 300); Opiate Screen,Urine Negative ng/mL (Cutoff=300); Phencyclidine Screen,Urine Negative ng/mL (Cutoff=25)
[2021-12-09] MEDS ORDERED: Haloperidol Lactate 5 MG/ML VIAL IM PRN (16:35)
[2021-12-09] MEDS ORDERED: hydrOXYzine pamoate 25 MG CAPSULE PO PRN (16:35)
[2021-12-09] MEDS ORDERED: haloperidoL 5 MG TABLET PO PRN (16:35)
[2021-12-09] MEDS ORDERED: traZODone 50 MG TABLET PO PRN (16:52)
[2021-12-09] MEDS ORDERED: *HR* LORazepam 0.5 MG TABLET PO PRN (16:54)
[2021-12-09] MEDS ORDERED: *HR* LORazepam 2 MG/ML VIAL IM PRN (16:55)
[2021-12-10] MEDS: Acetaminophen 325 MG TABLET PO PRN ×2 (08:12→20:04)
[2021-12-10] MEDS ORDERED: Buprenorphine Hcl/Naloxone Hcl [Buprenorphine-Naloxone 8/2 mg] SL SCH (09:00)
[2021-12-10] MEDS ORDERED: Mag Hydrox/Al Hydrox/Simeth 30 ML UDC PO PRN (09:50)
[2021-12-10] MEDS ORDERED: MOM Conc 10 ML UD.LIQ PO PRN (09:50)
[2021-12-10] MEDS ORDERED: BUPRENORPHINE HCL SL SCH (13:00)
[2021-12-10] MEDS ORDERED: NALOXONE HCL SL SCH (13:00)
[2021-12-10] MEDS: SUBOXONE SL SCH (15:07)
[2021-12-11] MEDS: SUBOXONE SL SCH (08:35)
[2021-12-11] MEDS: Acetaminophen 325 MG TABLET PO PRN (20:36)
[2021-12-12] MEDS: SUBOXONE SL SCH (11:56)
[2021-12-12] MEDS: Acetaminophen 325 MG TABLET PO PRN (20:49)
[2021-12-13] MEDS: SUBOXONE SL SCH (09:33)
[2021-12-13] MEDS: Acetaminophen 325 MG TABLET PO PRN (21:12)
[2021-12-14] MEDS: SUBOXONE SL SCH (10:22)
[2021-12-14 20:40] VITALS: O2SAT 96
[2021-12-15] MEDS ORDERED: Paliperidone Palmitate 156 MG/ML SYRINGE IM SCH (09:00)
[2021-12-15] MEDS: SUBOXONE SL SCH (09:34)
[2021-12-15 09:41] VITALS: BP 90/63; PULSE 71; TEMP 98.1
== END 2021-12-15 10:55 | disposition home or self-care (01) | DRG 776 ==
LOC: EMEROOARM 01:20 → 1ANU 15:34
PROVIDERS: ADMIT Psychiatry & Neurology Psychiatry; ATTEND Psychiatry & Neurology Psychiatry